=== PATIENT | male | born 1990 | race Caucasian/White ===

== ENCOUNTER 2023-02-19 11:52 | Emergency (ER) | payer OTHER, SELFPAY ==
[2023-02-19 11:54] VITALS: BP 139/91; PULSE 76; RESP 15; TEMP 36.6; O2SAT 97; BMI 24.1
--- NOTE | 2023-02-19 11:59 | DI.RAD.S_ITS ---
PROCEDURE: XR FINGER RT MIN 2V INDICATIONS: cut finger TECHNIQUE: AP hand, 2 views of the 3rd finger(s) acquired. COMPARISON: None. FINDINGS: Bones: Age indeterminate fracture of the 3rd phalanx tuft. Soft tissues: No suspicious soft tissue calcifications. IMPRESSION: Age indeterminate fracture of the 3rd phalanx tuft. Dictated by: Killian Higgins M.D. on 02/19/2023 at 12:30 Approved by: Killian Higgins M.D. on 02/19/2023 at 12:31
[2023-02-19] MEDS: TET,DIPH,PERTUSS(ACELL),VAC/PF 0.5 ML SYRINGE IM (13:14)
--- NOTE | 2023-02-19 13:17 | ED.WOUNDLAC ---
HPI - Wound/Laceration <Gladis Garcia PA-C - Last Filed: 02/19/23 14:16> General Chief Complaint: Wound/Laceration Stated Complaint: table saw kicked back /staple cut a hole in finger Time Seen by Provider: 02/19/23 13:17 Source: patient Mode of arrival: Ambulatory History of Present Illness HPI narrative: 32-year-old male presents with concern for work injury, laceration to his finger. Patient states he was using a table saw and moving his hand and a staple that was in the wood he was sign scraped through and lacerated the end of his left 4th finger. He states he feels he has been moving it fairly normally, it bled ?quite a bit?. This was an injury sustained at work and he came in today for stitches and further evaluation. He states that he has a need to have this be an claim. Though he presents with L and I paperwork from registration. He denies numbness tingling of the affected extremity/digit, previous injury to this extremity/digit or any other symptoms. Related Data Previous Rx's Medication Instructions Recorded cephalexin 500 mg capsule 500 mg PO Q8H 7 days #21 caps 02/19/23 Allergies Allergy/AdvReac Type Severity Reaction Status Date / Time No Known Drug Allergies Allergy Verified 02/19/23 11:56 Review of Systems <Gladis Garcai PA-C - Last Filed: 02/19/23 14:16> Review of Systems Narrative: See HPI Patient History <Gladis Garcia PA-C - Last Filed: 02/19/23 14:16> Social History Smoking Status: Current every day smoker Smoking Status: Current every day smoker tobacco type: vaping alcohol intake frequency: a few times a week Substance Use Type: does not use Exam <Gladis Garcia PA-C - Last Filed: 02/19/23 14:16> Narrative Exam Narrative: GENERAL: 32 year old patient appears stated age. Well-developed patient, in mild distress. HEAD: Atraumatic. Normocephalic. EYES: Pupils equal round and reactive. Extraocular motions intact. No scleral icterus. No injection or drainage. ENT: Nose without bleeding, purulent drainage. Airway patent. NECK: Trachea midline. Non tender CARDIOVASCULAR: Regular rate and rhythm without murmurs, gallops, or rubs. RESPIRATORY: Clear to auscultation. Breath sounds equal bilaterally. No wheezes, rales, or rhonchi. EXTREMITIES: There is an approximately 1.3 cm laceration of the pad of the left 4th finger it becomes more shallow-there is superficial just as it crosses the joint at the DI P. it is deep and gapping at the distal portion of the wound, patient's range of motion of the affected digit and sensation is intact, does endorse pain in the tip of his finger. No other edema or joint tenderness. NEURO: AOx3. SKIN: No rash or erythema of visible areas Initial Vital Signs Initial Vital Signs: Vital Signs Temperature 97.9 F 02/19/23 11:54 Pulse Rate 76 02/19/23 11:54 Respiratory Rate 15 02/19/23 11:54 Blood Pressure 139/91 H 02/19/23 11:54 Pulse Oximetry 97 02/19/23 11:54 Oxygen Delivery Method Room Air 02/19/23 11:54 <Cynthia Garg DO - Last Filed: 02/19/23 19:11> Initial Vital Signs Initial Vital Signs: Vital Signs Temperature 97.9 F 02/19/23 11:54 Pulse Rate 76 02/19/23 11:54 Respiratory Rate 15 02/19/23 11:54 Blood Pressure 139/91 H 02/19/23 11:54 Pulse Oximetry 97 02/19/23 11:54 Oxygen Delivery Method Room Air 02/19/23 11:54 Procedures <Gladis Garcia PA-C - Last Filed: 02/19/23 14:16> Laceration Repair Laceration 1: Time of procedure: 13:35 Site: hand (left 4th digit distal pad) Size (cm): 1.3 Description: linear Depth: simple, single layer Local Anesthetic: lidocaine 1% (3mL) Amount of anesthesia used (mL): 3 Pre-repair: wound explored and cleansed with chlorhexadine Skin layer closed with: nylon Skin layer suture size: 5-0 Number of sutures: 5 Technique: simple, interrupted Course <ACOSTA Myers Last Filed: 02/19/23 14:16> Orders Ordered: ED Orders 02/19/23 11:59 XR finger RT min 2V Stat Discontinued Medications Diphtheria/Tetanus/Acell Pertussis (Tet,Diph,Pertuss(Acell),Vac/Pf 0.5 Ml Syringe) 0.5 ml IM .ONCE ONE Stop: 02/19/23 13:09 Last Admin: 02/19/23 13:14 Dose: 0.5 ml Documented By: CTS Lidocaine HCl (Lidocaine 1% (Pf) 5 Ml) 5 ml INJ NOW ONE Stop: 02/19/23 13:23 Last Admin: 02/19/23 13:23 Dose: 5 ml Documented By: CTS Vital Signs Vital signs: Vital Signs - 8 hr 02/19/23 11:54 Temperature 97.9 F Pulse Rate 76 Respiratory Rate 15 Blood Pressure 139/91 H Pulse Oximetry 97 Oxygen Delivery Method Room Air <Cynthai Garg DO - Last Filed: 02/19/23 19:11> Orders Ordered: ED Orders 02/19/23 11:59 XR finger RT min 2V Stat Discontinued Medications Diphtheria/Tetanus/Acell Pertussis (Tet,Diph,Pertuss(Acell),Vac/Pf 0.5 Ml Syringe) 0.5 ml IM .ONCE ONE Stop: 02/19/23 13:09 Last Admin: 02/19/23 13:14 Dose: 0.5 ml Documented By: CTS Lidocaine HCl (Lidocaine 1% (Pf) 5 Ml) 5 ml INJ NOW ONE Stop: 02/19/23 13:23 Last Admin: 02/19/23 13:23 Dose: 5 ml Documented By: CTS Vital Signs Vital signs: Vital Signs - 8 hr 02/19/23 11:54 Temperature 97.9 F Pulse Rate 76 Respiratory Rate 15 Blood Pressure 139/91 H Pulse Oximetry 97 Oxygen Delivery Method Room Air MDM - Wound/Laceration <Gladis Garcia PA-C - Last Filed: 02/19/23 14:16> Differential Diagnosis Differential diagnosis: Likely laceration and other (Tuft fracture, work injury) Medical Records Attestation: I reviewed the patient's medical records. Medical records narrative: Agree with addended Radiology interpretation tuft fracture 4th digit Imaging Data Extremity x-ray #1: Radiologist's Impression: [address] [address] XRay Report Addendum Patient: Barney Colby MR#: [id number] : 1990 Acct:[id number] Age/Sex: 32 / M Date of Service: 02/19/23 Loc: ED Accession Number: [id number] ?? Procedure: XR finger RT min 2V Ordering Provider: Cynthia Garg D.O. ADDENDUMThis report includes an Addendum and supersedes previous reports for this exam. ? ? ? PROCEDURE:? XR FINGER RT MIN 2V ? INDICATIONS:? cut finger ? TECHNIQUE:? AP hand, 2 views of the 3rd finger(s) acquired.? ? COMPARISON:? None. ? FINDINGS:? ? Bones:? Age indeterminate fracture of the 3rd phalanx tuft. ? Soft tissues:? No suspicious soft tissue calcifications.? ? IMPRESSION:? Age indeterminate fracture of the 3rd phalanx tuft.? ? ? Dictated by: Killian Higgins M.D. on 02/19/2023 at 12:30 ? ? Approved by: Killian Higgins M.D. on 02/19/2023 at 12:31 ? ? ? ADDENDUM: ? The examination is of the 4th distal phalanx. ? The age-indeterminate fracture is of the 4th distal phalanx tuft. ? Dictated by: Killian Higgins M.D. on 02/19/2023 at 13:40 ? ? Approved by: Killian Higgins M.D. on 02/19/2023 at 13:41 ? Addendum Dictated By: Killian Higgins MD Addendum Signed By: Addendum Cosigned By: DD/ /13/1340 TD/TT: 02/19/2310/13/1340 PROCEDURE:? XR FINGER RT MIN 2V ? INDICATIONS:? cut finger ? TECHNIQUE:? AP hand, 2 views of the 3rd finger(s) acquired.? ? COMPARISON:? None. ? FINDINGS:? ? Bones:? Age indeterminate fracture of the 3rd phalanx tuft. ? Soft tissues:? No suspicious soft tissue calcifications.? ? IMPRESSION:? Age indeterminate fracture of the 3rd phalanx tuft.? ? ? Dictated by: Killian Higgins M.D. on 02/19/2023 at 12:30 ? ? Approved by: Killian Higgins M.D. on 02/19/2023 at 12:31?? ? MDM Narrative Medical decision making narrative: Is a well-appearing 32-year-old male who presents with concern for a laceration to his right 4th finger after while using a saw at work a staple that was in the wood sliced through the tip of his finger. Patient states that it was aura, his tetanus was updated today, x-ray showed a tuft fracture of the affected lacerated distal right 4th finger. Patient was placed on Keflex after washout with surgical soap and sutures placed as above and procedures. L and I paperwork is completed during the patient visit as well as a activity prescription return to work form. He is encouraged to follow up closely with Orthopedics and fought monitor carefully for signs of infection. Patient is left-handed and the injury occurred in his right 4th finger return precautions provided, follow-up plan discussed, all questions answered[id number]. Discharge Plan Departure Patient Disposition: Home Clinical Impression: Work related injury, Open fracture of tuft of distal phalanx of finger, Laceration of finger of right hand Activity Restrictions/Additional Instructions: *You have been diagnosed with [tuft fracture, open fracture, laceration, work injury] *What to do: *Please continue to take your regular medications as directed. [ ] New medication prescriptions sent to your pharmacy: [ ] [ ] New medication written as a paper prescription [* ] No new medications given *Please follow up with your primary care provider in 2-3 days, call for an appointment. Let them know you were seen in the Emergency Department and that we ask that you be seen in follow up. We will electronically transmit a record of today's note if your PCP is in our system. You sustained a laceration with a tuft fracture today of your left ring finger. A tuft fracture is basically the end of the bone in your finger is slightly crushed. Typically this does not require any surgical repair but because you have an open wound UR at higher risk of infection and potential infection of the bone, we are placing on antibiotics, it will be important for you to follow-up with Orthopedics, you will need to keep the area clean and dry and your stitches can be removed in 7-10 days. Please monitor for new or worsening symptoms, signs of infection and follow up closely with primary care and preferably Orthopedics. You may call their office, our on-call current provider of the day as listed below but you can see any available orthopedic provider. I recommend Tylenol and ibuprofen for pain. claim #[id number] for L&I. Discuss with registration/your employer submission of LH claim. *If you do not have a primary care provider please contact the [facility] Resource line at [phone]. They will ask some questions about your medical history and help get you set up with a doctor in the community. *Return to Emergency Department if you should have any new, worsening or concerning symptoms, such as [fever greater than 101 F, shaking chills, worsening pain, persistent vomiting or other bothersome symptoms] Prescriptions: New cephalexin 500 mg capsule 500 mg PO Q8H 7 Days Qty: 21 0RF Referrals: Miscellaneous,Doctor[facility] [Primary Care Provider] - Elma Rojas MD [Physician] - (tuft fracture open) Stand Alone Forms: Patient Portal/API <Cynthia Grag DO - Last Filed: 02/19/23 19:11> Cosign ED Attending Farz[place]ure Attestation: I was immediately available in the department for consultation. Documentation has been reviewed.
[2023-02-19] MEDS: LIDOCAINE 1% (PF) 5 ML INJ (13:23)
== END 2023-02-19 14:13 | disposition home or self-care (01) ==
PROVIDERS: Emergency Provider Student in an Organized Health Care Education/Training Program
DX: S62.634B Displaced fracture of distal phalanx of right ring finger, initial encounter for open fracture (principal); W45.8XXA Other foreign body or object entering through skin, initial encounter; Y99.0 Civilian activity done for income or pay; Z23 Encounter for immunization
CPT/HCPCS: 12001; 73140; 90471; 99284; 90715

== ENCOUNTER → 2023-03-18 16:45 | Outpatient (CLI) | payer OTHER, SELFPAY ==
--- NOTE | 2023-03-18 16:53 | DI.RAD.S_ITS ---
PROCEDURE: XR FINGER RT MIN 2V INDICATIONS: subungual hematoma right thumb TECHNIQUE: AP hand, 2 views of the right thumb finger(s) acquired. COMPARISON: [facility], , XR FINGER RT MIN 2V, 02/19/2023, 11:56. FINDINGS: Bones: No acute fracture or dislocation. No suspicious osseous lesions. Soft tissues: No suspicious soft tissue calcifications. Soft tissue swelling of the right thumb. No radiopaque soft tissue foreign bodies . IMPRESSION: Soft tissue swelling of the left thumb without underlying fracture or dislocation. If there is persistent clinical concern for occult fracture given adequate mechanism of injury, consider repeat imaging in 10-14 days. Dictated by: Negrito Medina M.D. on 03/18/2023 at 17:20 Approved by: Negrito Medina M.D. on 03/18/2023 at 17:22
== END ==
PROVIDERS: PCP Family Medicine; Referring Provider Physician Assistant; Visit Provider Physician Assistant
DX: S60.011A Contusion of right thumb without damage to nail, initial encounter (principal); M79.89 Other specified soft tissue disorders
CPT/HCPCS: 73140